=== PATIENT | female | born 1945 | race Caucasian/White ===

== ENCOUNTER 2017-03-20 12:53 | Emergency (ER) | payer MEDICARE, BC ==
[2017-03-20 13:48] VITALS: BP 147/97
[2017-03-20] MEDS ORDERED: Tetan/Diph/Pertus SYR(Tdap)* 0.5 ML SYR(BOOSTRIX) use SYR IM ONE (14:08)
--- NOTE | 2017-03-20 14:28 | UC ---
Skin Complaint HPI - HPI Summary HPI Summary: Pt c/o laceration to right index finger dorsal and distal aspect. Pt was cross [place] skiing and hit finger against tree branch. Bleeding is controlled - History of Current Complaint Chief Complaint: UCLaceration Time Seen by Provider: 03/20/17 14:06 Stated Complaint: RT HAND FIRST FINGER INJURY Hx Obtained From: Patient ?: No Onset/Duration: Sudden Onset Skin Exposure Onset/Duration: Hours Ago Timing: Constant Onset Severity: Mild Current Severity: Mild Location: Discrete, Hand (Right) - index finger Character: Painful Aggravating Factor(s): Touch Alleviating Factor(s): Other - bandage Associated Signs & Symptoms: Positive: Tenderness Related History: Trauma - Allergy/Home Medications Allergies/Adverse Reactions: Allergies Allergy/AdvReac Type Severity Reaction Status Date / Time No Known Allergies Allergy Verified 03/20/17 13:44 Home Medications: Home Medications Bp Med DAILY 03/20/17 [History] Review of Systems Constitutional: Negative Skin: Other - laceration Eyes: Negative ENT: Negative Respiratory: Negative Cardiovascular: Negative Gastrointestinal: Negative Genitourinary: Negative Motor: Negative Neurovascular: Negative Musculoskeletal: Negative Neurological: Negative Psychological: Negative Is Patient Immunocompromised?: No All Other Systems Reviewed And Are Negative: Yes PMH/Surg Hx/FS Hx/Imm Hx Previously Healthy: Yes - Surgical History Surgical History: None - Family History Known Family History: Positive: Cardiac Disease - Social History Occupation: Retired Lives: With Family Alcohol Use: Occasionally Substance Use Type: None Smoking Status (MU): Never Smoked Tobacco Have You Smoked in the Last Year: No - Immunization History Most Recent Tetanus Shot: unknown Physical Exam Triage Information Reviewed: Yes Appearance: Well-Appearing Vital Signs: Initial Vital Signs Temp 98.6 F 03/20/17 13:46 Pulse 118 03/20/17 13:46 Resp 20 03/20/17 13:46 BP 147/97 03/20/17 13:46 Vital Signs Reviewed: Yes Eye Exam: Normal ENT Exam: Normal Dental Exam: Normal Neck exam: Normal Respiratory Exam: Normal Musculoskeletal Exam: Normal Neurological Exam: Normal Psychological Exam: Normal Skin Exam: Normal Laceration Repair - Laceration Repair 1 Description: Linear Laceration Size After Repair: Length (cm) - 2, Width (mm) - 3, Depth (mm) - 2 Modified For Repair: No Irrigation With Pressure Irrigation Device: Yes Closure Material: Skin Adhesive Closure Method: Single Layer Suture Of: Skin Course/Dx - Differential Diagnoses - Skin Complaint Differential Diagnoses: Other - laceration - Diagnoses Provider Diagnoses: Laceration to right index finger-repaired with skin adhesive Discharge - Discharge Plan Condition: Stable Disposition: HOME Patient Education Materials: Laceration (ED), Skin Adhesive Care (ED) Referrals: Ivone BORJA,Sarai Abraham [Primary Care Provider] - If Needed Additional Instructions: Please follow up with your PCP or return to clinic as needed. Please note that your pulse and blood pressure were elevated at today's visit. Please follow up with your PCP with regard to these findings as needed.
== END 2017-03-20 14:47 | disposition home or self-care (01) ==
LOC: UCCORT 12:53
DX: S61.210A Laceration without foreign body of right index finger without damage to nail, initial encounter (principal); W22.8XXA Striking against or struck by other objects, initial encounter; Y93.24 Activity, cross country skiing; Y92.9 Unspecified place or not applicable
CPT/HCPCS: 12001; 90471; 90715; 99202; G0463